=== PATIENT | female | born 1965 | race Caucasian/White ===

== ENCOUNTER 2016-04-12 01:16 | Emergency (ER) | payer SELFPAY ==
[~2016-04-12] VITALS: Ht 137.2 cm; Wt 69.5 kg
[2016-04-12 01:19] VITALS: Ht 137.2 cm; Wt 69.5 kg
[2016-04-12] MEDS ORDERED: ACET325T33 PO (11:56)
[2016-04-12] MEDS ORDERED: PSEU30TA38 PO (11:56)
[2016-04-12] MEDS ORDERED: FLUT9.9S NASAL (11:56)
== END 2016-04-12 04:25 | disposition left against medical advice (07) ==
LOC: FTE 01:16
DX: Z53.21 Procedure and treatment not carried out due to patient leaving prior to being seen by health care provider (principal)

== ENCOUNTER 2016-04-12 10:59 | Emergency (ER) | payer MEDICAID ==
[~2016-04-12] VITALS: Wt 68.5 kg
[2016-04-12] MEDS ORDERED: FLUT9.9S NASAL (11:56)
[2016-04-12] MEDS ORDERED: PSEU30TA38 PO (11:56)
[2016-04-12] MEDS ORDERED: ACET325T33 PO (11:56)
--- NOTE | 2016-04-12 15:04 | ERD ---
DATE OF SERVICE: HISTORY OF PRESENT ILLNESS: The patient is a 50-year-old female coming in complaining of body aches for the last 2 days. She has had no fevers. She has had some mild nasal congestion with a mild so re throat. She states that she has no cough, no headaches, no vomiting. No neck pain, no abdominal pain, no change in urination or bowel movement and no sick contacts at home. PAST MEDICAL HISTORY: Denies medical problems. MEDICATION ALLERGIES: DENIES. SURGICAL HISTORY: Denies. SOCIAL HISTORY: Denies smoking. REVIEW OF SYSTEMS: A 12-point review of systems was done. Refer to HPI for positives, all other sy stems negative. PHYSICAL EXAMINATION VITAL SIGNS: Temperature is 98.4, pulse is 88, blood pressure is 122/77, respiratory 18, O2 saturat ion 97% on room air. Pain intensity of 5/10. GENERAL: The patient is well-appearing, well-nourished, no acute distress. HEENT: Atraumatic. Conjunctivae are pink. Pupils equal, round, and reactive to light. There is no s cleral icterus. Tympanic membranes clear bilaterally. Oropharynx clear. No nystagmus or photophobia . CHEST: Clear to auscultation bilaterally. There are no rales, wheezes or rhonchi. HEART: Regular rate and rhythm. No murmurs, clicks, rubs or gallops. No S3 or S4. ABDOMEN: Soft, nontender and nondistended. Good bowel sounds. No rebound or guarding. No gross john tonitis. No gross organomegaly or masses. No Coreas sign or McBurney point tenderness. SKIN: There is no apparent rash or petechia. The skin is warm and dry. DIAGNOSIS: Upper respiratory infection. MEDICAL DECISION MAKING: I have low suspicion for meningitis or sepsis, low suspicion for pneumonia , low suspicion for bacterial HEENT infection. The patient's exams are nonconcerning. Patient's vi nelly signs are stable. The patient is nontoxic appearing. DISCHARGE: The patient is discharged stable. Patient is given a prescription for Flonase, Sudafed and Tylenol and told to follow up with primary care within 1 to 2 days for reevaluation. The patien t was told if symptoms progress or worsen to return to the ER. All other questions answered at time of discharge. Discharge summary given at the time of departure. Patient understood and complied w ith plan. Dictated By: YOUISF GRADY for CHERIE PARSONS/PEEWEE Conf#: [id number] DID#: [id number]
== END 2016-04-12 12:40 | disposition home or self-care (01) ==
LOC: FTE 10:59
DX: J06.9 Acute upper respiratory infection, unspecified (principal)
CPT/HCPCS: 99283